=== PATIENT | female | born 1945 | race Caucasian/White ===

== ENCOUNTER 2023-07-22 13:51 | Outpatient (CLI) | payer OTHER, SELFPAY | END 2023-07-22 13:52 | disposition home or self-care (01) | LOC: LKVREF 13:52 | PROVIDERS: Visit Provider Family Medicine | DX: E03.9 Hypothyroidism, unspecified (principal) | CPT/HCPCS: 84443 ==

== ENCOUNTER 2023-12-16 11:15 | Outpatient (RCR) | payer OTHER, SELFPAY ==
[2023-08-16 09:11] VITALS: BP 112/71; PULSE 84; RESP 16; TEMP 35.8; O2SAT 97
[2023-08-16 09:24] VITALS: BP 112/71; PULSE 84; RESP 16; TEMP 35.8; O2SAT 97
[2023-08-16 09:42] VITALS: BP 90/53; PULSE 84; RESP 16; TEMP 36.2; O2SAT 97
[2023-08-16 10:26] VITALS: BP 102/61; PULSE 76; RESP 16; TEMP 36.4; O2SAT 97
[2023-08-16 11:26] VITALS: BP 126/84; PULSE 68; RESP 16; TEMP 36.4; O2SAT 99
[2023-08-16] MEDS: SODIUM CHLORIDE 0.9 % (FLUSH) 10 ML SYRINGE IVF (13:36)
[2023-08-16] MEDS: 0.9 % SODIUM CHLORIDE 250 ml IV (13:36)
[2023-12-16 11:23] VITALS: BP 154/73; PULSE 77; RESP 16; TEMP 36.4; O2SAT 98
[2023-12-16 11:44] VITALS: BP 155/70; PULSE 71; RESP 16; TEMP 36.5; O2SAT 98
[2023-12-16 12:40] VITALS: BP 150/71; PULSE 70; RESP 16; TEMP 36.5; O2SAT 97
[2023-12-16 13:29] VITALS: BP 161/73; PULSE 71; RESP 16; TEMP 36.5; O2SAT 98
== END 2024-02-09 23:59 | disposition home or self-care (01) ==
LOC: CCIC 11:15
PROVIDERS: Visit Provider Clinical Nurse Specialist
DX: C91.10 Chronic lymphocytic leukemia of B-cell type not having achieved remission (principal)
CPT/HCPCS: 36415; 36430; 86850; 86900; 86901; 86922; J7050; P9016